=== PATIENT | female | born 1970 | race Two or more races ===

== ENCOUNTER 2020-02-08 06:35 | Day surgery (SDC) | payer OTHER | END 2020-02-08 11:10 | disposition home or self-care (01) | LOC: AMB-ENDOS 06:35 | PROVIDERS: ATTEND Surgery | DX: K62.89 Other specified diseases of anus and rectum (principal); K64.8 Other hemorrhoids ==

== ENCOUNTER 2022-11-14 06:14 | Inpatient (IN) | payer OTHER ==
[~2022-11-14] VITALS: Ht 162.6 cm; Wt 93.0 kg
[~2022-11-14 06:14] MED LIST: CLONAZEPAM1 MG PO; CLONAZEPAM2 MG PO; CRESTOR10 MG PO; PAXIL30 MG PO; TRIAMTERENE
[2022-11-19] MEDS ORDERED: TRIAMTERENE-HC1 EAC3 (10:57)
[2022-11-19] MEDS ORDERED: LORAZEPAM1 MG (10:57)
== END 2022-11-19 18:07 | disposition home or self-care (01) | DRG 742 ==
LOC: CIR.AMB 06:14 → OB/GYN 21:05
PROVIDERS: Surgery; ADMIT Obstetrics & Gynecology Gynecologic Oncology; ATTEND Obstetrics & Gynecology Gynecologic Oncology
PROC: 0UT24ZZ Resection of Bilateral Ovaries, Percutaneous Endoscopic Approach (ICD-10-PCS; 2022-11-14)
PROC: 0DTN4ZZ Resection of Sigmoid Colon, Percutaneous Endoscopic Approach (ICD-10-PCS; 2022-11-14)
PROC: 0DJD8ZZ Inspection of Lower Intestinal Tract, Via Natural or Artificial Opening Endoscopic (ICD-10-PCS; 2022-11-14)
PROC: 0UT94ZZ Resection of Uterus, Percutaneous Endoscopic Approach (ICD-10-PCS; principal; 2022-11-14 18:15)
PROC: 0UT74ZZ Resection of Bilateral Fallopian Tubes, Percutaneous Endoscopic Approach (ICD-10-PCS; 2022-11-14 18:15)
PROC: 30233N1 Transfusion of Nonautologous Red Blood Cells into Peripheral Vein, Percutaneous Approach (ICD-10-PCS; 2022-11-18)
PROC: BB24Y0Z Computerized Tomography (CT Scan) of Bilateral Lungs using Other Contrast, Unenhanced and Enhanced (ICD-10-PCS; 2022-11-18)
DX: D25.2 Subserosal leiomyoma of uterus (principal); D62 Acute posthemorrhagic anemia; N80.03 Adenomyosis of the uterus; N84.0 Polyp of corpus uteri; Z20.822 Contact with and (suspected) exposure to COVID-19; N72 Inflammatory disease of cervix uteri; N80.103 Endometriosis of bilateral ovaries, unspecified depth; N80.50 Endometriosis of intestine, unspecified

== ENCOUNTER 2022-12-10 16:52 | Emergency (ER) | payer OTHER ==
[~2022-12-10] VITALS: Ht 162.6 cm; Wt 81.6 kg
[~2022-12-10 16:52] MED LIST changes: +LORAZEPAM1 MG; +TRIAMTERENE-HC1 EAC3
[2022-12-10] MEDS ORDERED: CLONAZEPAM1 MG PO (17:57)
[2022-12-10] MEDS ORDERED: PAXIL40 MG (17:58)
[2022-12-10] MEDS ORDERED: CLONAZEPAM2 MG PO (17:58)
[2022-12-11] MEDS ORDERED: PEPCID40 MG PO (03:16)
[2022-12-11] MEDS ORDERED: ONDANSETRON ODT4 MG PO (03:16)
[2022-12-11] MEDS ORDERED: INTESTINEX680 M1 PO (03:16)
[2022-12-11] MEDS ORDERED: LEVSIN/SL0.125 MG SL (03:16)
== END 2022-12-11 03:25 | disposition home or self-care (01) ==
LOC: ER 16:52
DX: K52.89 Other specified noninfective gastroenteritis and colitis (principal); F32.A Depression, unspecified